=== PATIENT | male | born 1995 | race African-American/Black ===

== ENCOUNTER 2019-03-13 09:26 | Emergency (ER) | payer OTHER ==
[~2019-03-13] VITALS: Ht 175.3 cm; Wt 86.4 kg
[2019-03-13] MEDS ORDERED: ONDANSETRON 4 MG ORAL DISINTEGRATING TAB (Q0162 PER 1MG) PO ONE (10:00)
[2019-03-13] MEDS ORDERED: IBUPROFEN 600 MG TAB PO ONE (10:15)
[2019-03-13 11:16] LABS: INFLUENZA A AMPLIFICATION NEGATIVE (NEGATIVE); INFLUENZA B AMPLIFICATION NEGATIVE (NEGATIVE)
[2019-03-13] MEDS ORDERED: FLON1SPR NARES (11:40)
[2019-03-13] MEDS ORDERED: ZYRTTAB8 PO (11:40)
[2019-03-13] MEDS ORDERED: IBUP-1022 PO (11:40)
[2019-03-13] MEDS ORDERED: MUCI600T31 PO (11:40)
[2019-03-13 11:47] VITALS: BP 110/56
[2019-03-14] MEDS ORDERED: NON-325T5 PO (14:37)
[2019-03-14] MEDS ORDERED: AMOX500C PO (15:59)
== END 2019-03-13 11:48 | disposition home or self-care (01) ==
LOC: M ED 09:26
DX: J30.9 Allergic rhinitis, unspecified (principal)
CPT/HCPCS: 87502; 87880; 99284; Q0162

== ENCOUNTER 2019-03-14 14:27 | Emergency (ER) | payer OTHER ==
[~2019-03-14] VITALS: Ht 175.3 cm; Wt 86.4 kg
[~2019-03-14 14:27] MED LIST: FLON1SPR NARES; IBUP-1022 PO; MUCI600T31 PO; ZYRTTAB8 PO
[2019-03-14] MEDS ORDERED: NON-325T5 PO (14:37)
[2019-03-14] MEDS ORDERED: NS 1,000 ML IV ONE (14:45)
[2019-03-14] MEDS ORDERED: dexameTHASONE 20 MG/5 ML VIAL (J1100) IV ONE (14:45)
[2019-03-14] MEDS ORDERED: ACETAMINOPHEN 500 MG TAB PO ONE (14:45)
[2019-03-14] MEDS ORDERED: KETOROLAC 30 MG/ML VIAL (J1885) IV ONE (15:00)
[2019-03-14] MEDS ORDERED: ISOVUE-370 76% 100ML VIAL (Q9967) As Ordered ONE (15:15)
[2019-03-14] MEDS ORDERED: AMOX500C PO (15:59)
[2019-03-14] MEDS ORDERED: AMOXICILLIN 250 MG CAP PO ONE (16:00)
--- NOTE | 2019-03-14 16:01 | REP ---
CT angiography of the neck with IV contrast: History: Neck pain. CT contrast dose: 75 ml of intravenous Isovue 370. CT findings: The aortic arch enhances homogeneously and appears morphologically intact. Great vessel origins are unremarkable. Vertebral arteries are widely patent and codominant. The common carotid arteries are unremarkable bilaterally. Carotid bifurcations are clear. Internal carotid arteries are intact and symmetric. No internal carotid artery stenosis or dissection is seen. Thyroid lobes are normal and homogeneous. Parotid and submandibular glands are intact. 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 There is mild bilateral anterior cervical lymphadenopathy. The largest lymph node is in the right internal jugular chain. This measures 14 x 20 mm. Tongue base and floor and mouth structures appear intact. The tonsils are somewhat hypertrophied. Adenoids are mildly full as well. There is no evidence of abscess. Impression: There is no evidence of dissection or other vascular abnormality. Mild bilateral anterior cervical lymphadenopathy. 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 This is a normal variant. Electronically Signed by Davi Albert MD 03/14/2019 04:37 P
[2019-03-14 16:14] VITALS: BP 115/59
== END 2019-03-14 16:43 | disposition home or self-care (01) ==
LOC: EDBD 14:27 → M ED 14:27
DX: J02.8 Acute pharyngitis due to other specified organisms (principal)
CPT/HCPCS: 70498; 96374; 96375; 99284; J1100; J1885; Q9967